=== PATIENT | female | born 1960 | race Caucasian/White ===

== ENCOUNTER 2022-02-02 15:20 | Outpatient (CLI) | payer OTHER ==
[2022-02-02 15:59] LABS: Hemoglobin 12.8 g/dL (12.0-15.5)
[2022-02-02 16:06] LABS: Anion Gap 12 mmol/L (10-20); BUN (Urea Nitrogen) 13 mg/dL (9.8-20.1); Calc. Creatinine Clearance 0 mL/min (70-130); Calcium 11.2 mg/dL (7.8-10.44); Carbon Dioxide 29 mmol/L (22-29); Chloride 100 mmol/L (98-107); Estimated GFR 77; Glucose 120 mg/dL (70-105); Potassium 3.4 mmol/L (3.5-5.1); Sodium 138 mmol/L (136-145)
== END 2022-02-02 15:21 | disposition home or self-care (01) ==
LOC: CSHLAB 15:20
PROVIDERS: ATTEND Otolaryngology Plastic Surgery within the Head & Neck
DX: Z01.818 Encounter for other preprocedural examination (principal); Z20.822 Contact with and (suspected) exposure to COVID-19
CPT/HCPCS: 80048; 85014; 85018; 87811; 93005; 93010

== ENCOUNTER 2022-02-07 08:58 | Day surgery (SDC) | payer OTHER ==
[2022-02-03 12:02] VITALS: BMI 35.2
[2022-02-07] MEDS ORDERED: Lidocaine 1% MPF 2 ML VIAL ONE (10:24)
[2022-02-07] MEDS ORDERED: Midazolam HCl 2 mg/2 ml Vial ONE ×2 (10:38→10:43)
[2022-02-07] MEDS ORDERED: EPINEPHrine 1 MG/ML AMP ONE (10:41)
[2022-02-07] MEDS ORDERED: PROPOFOL 60 ML ONE (10:43)
[2022-02-07] MEDS ORDERED: Dexamethasone 20 MG/5 ML VIAL ONE (10:43)
[2022-02-07] MEDS ORDERED: Ondansetron PF 4 MG/2 ML Vial ONE (10:43)
[2022-02-07] MEDS ORDERED: Lidocaine 1% PF 5 ML VIAL ONE (10:43)
[2022-02-07] MEDS ORDERED: Fentanyl 100 MCG/2 ML VIAL ONE (10:43)
== END 2022-02-07 12:22 | disposition home or self-care (01) ==
LOC: CSHSDC 08:58
PROVIDERS: ATTEND Otolaryngology Plastic Surgery within the Head & Neck
PROC: 0CBV8ZZ Excision of Left Vocal Cord, Via Natural or Artificial Opening Endoscopic (ICD-10-PCS; principal; 2022-02-07)
DX: J38.1 Polyp of vocal cord and larynx (principal); R49.0 Dysphonia; I10 Essential (primary) hypertension; F41.9 Anxiety disorder, unspecified; E89.0 Postprocedural hypothyroidism; Z79.899 Other long term (current) drug therapy; Z20.822 Contact with and (suspected) exposure to COVID-19; Z98.890 Other specified postprocedural states
CPT/HCPCS: 88305; J0171; J1100; J2250; J2405; J2704; J3010